=== PATIENT | male | born 1965 | race Caucasian/White ===

== ENCOUNTER 2017-03-31 10:54 | Emergency (ER) | payer OTHER ==
[~2017-03-31] VITALS: Ht 167.6 cm; Wt 77.1 kg
[~2017-03-31 10:54] MED LIST: ECOTRIN325 MG PO; TOPROL XL25 MG PO
[2017-03-31] MEDS ORDERED: ONDANSETRON HCL INJ 2 MG/ML VIAL IV STA (11:07)
[2017-03-31] MEDS ORDERED: SODIUM CHLORIDE 0.9% 1000ML 1,000 ML IV SCH (11:15)
[2017-03-31] MEDS: SODIUM CHLORIDE FLUSH 10 ML SYR INJ PRN ×2 (12:44→13:35)
[2017-03-31] MEDS ORDERED: MORPHINE SULFATE 2 MG/ML SYR IV STA (12:47)
[2017-03-31 13:00] LABS: BASOPHILS % 0.6 % (0.0-1.0); EOSINOPHILS # (AUTO) 0.1 (0.0-0.4); EOSINOPHILS % 1.7 % (0.0-6.0); HEMATOCRIT 46.5 % (38.2-49.6); HEMOGLOBIN 16.3 g/dL (14.0-18.0); LYMPHOCYTES # (AUTO) 2.2 (1.0-3.2); LYMPHOCYTES % 40.9 % (18.0-39.1); MEAN CORPUSCULAR HEMOGLOBIN 30.2 pg (28-32); MEAN CORPUSCULAR HGB CONC 35.1 g/dL (31-35); MEAN CORPUSCULAR VOLUME 86.1 fL (81-99); MONOCYTES # (AUTO) 0.4 (0.2-0.8); NEUTROPHILS # (AUTO) 2.6 (2.1-6.9); NEUTROPHILS % 48.4 % (38.7-80.0); PLATELET COUNT 236 x10e3/uL (140-360); RED CELL DISTRIBUTION WIDTH 11.9 % (11.7-14.4)
[2017-03-31 13:15] LABS: ALANINE AMINOTRANSFERASE 26 IU/L (0-55); ALBUMIN 4.6 g/dL (3.5-5.0); ALBUMIN/GLOBULIN RATIO 1.4 (0.8-2.0); ALKALINE PHOSPHATASE 53 IU/L (40-150); ANION GAP 10.8 mmol/L (8-16); BLOOD UREA NITROGEN 11 mg/dL (7-26); BUN/CREATININE RATIO 12 (6-25); CALCIUM 9.1 mg/dL (8.4-10.2); CARBON DIOXIDE 25 mmol/L (22-29); CHLORIDE 104 mmol/L (98-107); CREATININE, SERUM 0.93 mg/dL (0.72-1.25); EST GLOMERULAR FILTRATION RATE > 60 ML/MIN (60-); GLUCOSE 85 mg/dL (74-118); POTASSIUM 3.8 mmol/L (3.5-5.1); SODIUM 136 mmol/L (136-145)
[2017-03-31] MEDS ORDERED: ONDANSETRON HCL INJ 2 MG/ML VIAL IV ONE (13:30)
[2017-03-31 14:04] LABS: BILIRUBIN,URINE NEGATIVE (NEGATIVE); CLARITY,URINE CLEAR (CLEAR); COLOR,URINE YELLOW (YELLOW); KETONES,URINE NEGATIVE (NEGATIVE); LEUKOCYTE ESTERASE ,URINE NEGATIVE (NEGATIVE); NITRITE,URINE NEGATIVE (NEGATIVE); PROTEIN,URINE DIPSTICK NEGATIVE (NEGATIVE); URINE UROBILINOGEN 0.2 mg/dL (0.2 - 1)
[2017-03-31 14:18] LABS: WBC,URINE (MAN) 0-5 /HPF (0-5)
--- NOTE | 2017-03-31 14:51 | Diagnostic Imaging Report ---
Examination: Single AP view of the chest. COMPARISON: None. INDICATION: Right-sided abdominal pain, dyspnea DISCUSSION: Lines/tubes: None. Lungs: The lungs are well inflated and clear. No pneumonia or pulmonary edema. Pleura: There is no pleural effusion or pneumothorax. Heart and mediastinum: The heart and the mediastinum are unremarkable. Bones and soft tissues: No acute bony abnormalities. IMPRESSION: 1. No acute cardiopulmonary abnormalities. Signed by: Dr. Fito Bates M.D. on 03/31/2017 2:48 PM
[2017-03-31] MEDS ORDERED: SODIUM CHLORIDE 0.9% 50ML 50 ML ONE (14:56)
[2017-03-31] MEDS ORDERED: IOPAMIDOL 370 MG/ML 200 ML INFUS..BTL INJ ONE (14:56)
--- NOTE | 2017-03-31 15:03 | Diagnostic Imaging Report ---
EXAMINATION: CT of the abdomen and pelvis with contrast. TECHNIQUE: Helical CT images of the abdomen and pelvis were performed from the lung bases to the lesser trochanters after the intravenous administration of 100 cc of Isovue 300 and the oral administration of none. Coronal and sagittal reformatted images were obtained. COMPARISON: None. CLINICAL HISTORY:Right-sided abdominal pain DISCUSSION: ABDOMEN/PELVIS: LOWER THORAX:Unremarkable. HEPATOBILIARY: No focal hepatic lesions. No intra-or extrahepatic biliary ductal dilation. Cholecystectomy clips. SPLEEN: No splenomegaly. PANCREAS: No focal masses or ductal dilatation. ADRENALS: No adrenal nodules. KIDNEYS/URETERS: No hydronephrosis, stones, or solid mass lesions. PELVIC ORGANS/BLADDER: The bladder is normal. PERITONEUM/RETROPERITONEUM: No free air or fluid. LYMPH NODES: No intra-abdominal, retroperitoneal, pelvic or inguinal lymphadenopathy. VESSELS: The celiac trunk,superior and inferior mesenteric and bilateral renal arteries are patent The portal, superior mesenteric and splenic veins are patent. GI TRACT: No distention or wall thickening. Appendix not visualized. BONES AND SOFT TISSUE: No bony destructive lesions. IMPRESSION: No acute CT finding. Signed by: Dr. Fito Bates M.D. on 03/31/2017 2:59 PM
[2017-03-31] MEDS ORDERED: HYDROMORPHONE 2MG/ML INJ IV ONE (16:00)
== END 2017-03-31 17:08 | disposition home or self-care (01) ==
LOC: ER 10:54
DX: R10.31 Right lower quadrant pain (principal); R11.0 Nausea
CPT/HCPCS: 36415; 71010; 74177; 80053; 81001; 85025; 87040; 87086; 99284; J2270; J2405; J7030; Q9967

== ENCOUNTER 2019-02-14 15:03 | Inpatient (IN) | payer OTHER ==
[~2019-02-14] VITALS: Ht 170.2 cm; Wt 79.5 kg
[2019-02-14] MEDS ORDERED: IBUPROFEN 600 MG TAB PO NR (16:30)
[2019-02-14 17:06] LABS: BASOPHILS % 0.4 % (0.0-1.0); EOSINOPHILS # (AUTO) 0.2 (0.0-0.4); EOSINOPHILS % 2.1 % (0.0-6.0); HEMOGLOBIN 14.4 g/dL (14.0-18.0); LYMPHOCYTES # (AUTO) 2.2 (1.0-3.2); LYMPHOCYTES % 31.7 % (18.0-39.1); MEAN CORPUSCULAR HEMOGLOBIN 29.8 pg (28-32); MEAN CORPUSCULAR HGB CONC 34.3 g/dL (31-35); MEAN CORPUSCULAR VOLUME 86.8 fL (81-99); MONOCYTES # (AUTO) 0.6 (0.2-0.8); MONOCYTES % 8.9 % (4.4-11.3); NEUTROPHILS % 56.6 % (38.7-80.0); PLATELET COUNT 232 x10e3/uL (140-360); RED BLOOD COUNT 4.84 x10e6/uL (4.3-5.7); RED CELL DISTRIBUTION WIDTH 12.5 % (11.7-14.4)
[2019-02-14 17:49] LABS: ALANINE AMINOTRANSFERASE 50 IU/L (0-55); ALBUMIN 3.9 g/dL (3.5-5.0); ALBUMIN/GLOBULIN RATIO 1.3 (0.8-2.0); ALKALINE PHOSPHATASE 45 IU/L (40-150); ANION GAP 14.6 mmol/L (8-16); BLOOD UREA NITROGEN 11 mg/dL (7-26); BUN/CREATININE RATIO 12 (6-25); CALCIUM 8.8 mg/dL (8.4-10.2); CARBON DIOXIDE 23 mmol/L (22-29); CHLORIDE 104 mmol/L (98-107); CREATINE KINASE 2652 IU/L (30-200); CREATININE, SERUM 0.95 mg/dL (0.72-1.25); EST GLOMERULAR FILTRATION RATE > 60 ML/MIN (60-); GLUCOSE 93 mg/dL (74-118); POTASSIUM 3.6 mmol/L (3.5-5.1); SODIUM 138 mmol/L (136-145)
[2019-02-14] MEDS ORDERED: SODIUM CHLORIDE 0.9% 1000ML 1,000 ML IV STA (18:04)
[2019-02-14] MEDS: SODIUM CHLORIDE 0.9% 1000ML 1,000 ML IV SCH (21:28)
[2019-02-15] VITALS (8 sets, daily range): BP systolic 129–140; BP diastolic 78–93
[2019-02-15] MEDS: SODIUM CHLORIDE 0.9% 1000ML 1,000 ML IV SCH ×4 (02:11→20:58)
[2019-02-15 03:29] LABS: CREATINE KINASE MB 59.3 ng/mL (0-5.0)
[2019-02-15] MEDS: ACETAMINOPHEN 325 MG TAB PO PRN (06:32)
--- NOTE | 2019-02-15 07:04 | NUR ---
Received patient semi fowlers position, side rails upx2, call light within reach. Resting with eyes closed. Arousable to verbal stimuli. Respirations even and unlabored. Side rails upx2, call light within reach.
[2019-02-15] MEDS ORDERED: ASPIRIN 325 MG TAB EC PO SCH (09:00)
[2019-02-15 11:58] LABS: CREATINE KINASE MB 63.2 ng/mL (0-5.0)
[2019-02-15] MEDS: HYDROCODONE/APAP 5MG-325MG TAB PO PRN (18:28)
[2019-02-15 19:11] LABS: CREATINE KINASE MB 78.4 ng/mL (0-5.0)
--- NOTE | 2019-02-15 19:13 | NUR ---
Report given to oncoming nurse of patient's status.No s/s of acute distress noted. Side rails upx2, call light within reach, at bedside.
--- NOTE | 2019-02-15 19:45 | NUR ---
Called MD Dr Macias to report elevated CK 3465 from 270. Patient on NS 125. Monitor urine output, if urine remains clear, continue NS and consult madeline Hagan to see in am.
--- NOTE | 2019-02-15 19:54 | NUR ---
New consult called Issac Hagan. Spoke with Answering service.
--- NOTE | 2019-02-15 20:15 | NUR ---
Instructed patient to void per urinal to observe urine color and output. Patient verbalized understanding.
--- NOTE | 2019-02-15 21:00 | NUR ---
Empty 200ml of clear yellow urine, Will continue to monitor.
--- NOTE | 2019-02-15 23:00 | NUR ---
Emptied 400 ml of clear yellow urine, will continue to monitor.
[2019-02-16] VITALS (7 sets, daily range): BP systolic 121–158; BP diastolic 77–98
[2019-02-16] MEDS: SODIUM CHLORIDE 0.9% 1000ML 1,000 ML IV SCH ×3 (02:44→18:11)
[2019-02-16 05:43] LABS: ANION GAP 11.6 mmol/L (8-16); BLOOD UREA NITROGEN 8 mg/dL (7-26); BUN/CREATININE RATIO 10 (6-25); CARBON DIOXIDE 24 mmol/L (22-29); CHLORIDE 107 mmol/L (98-107); CREATININE, SERUM 0.83 mg/dL (0.72-1.25); EST GLOMERULAR FILTRATION RATE > 60 ML/MIN (60-); GLUCOSE 86 mg/dL (74-118); POTASSIUM 3.6 mmol/L (3.5-5.1); SODIUM 139 mmol/L (136-145)
[2019-02-16] MEDS: ASPIRIN 81 MG ENTERIC COATED PO SCH (09:05)
[2019-02-16 11:25] LABS: MAGNESIUM 1.8 MG/DL (1.3-2.1); PHOSPHORUS 2.9 MG/DL (2.3-4.7)
[2019-02-16 13:20] LABS: AMPHETAMINES SCREEN,URINE NEGATIVE (NEGATIVE); BENZODIAZEPINES SCREEN,URINE NEGATIVE (NEGATIVE); PHENCYCLIDINE SCREEN,URINE NEGATIVE (NEGATIVE)
[2019-02-16 13:21] LABS: BILIRUBIN,URINE NEGATIVE (NEGATIVE); CLARITY,URINE CLEAR (CLEAR); COLOR,URINE COLORLESS (YELLOW); KETONES,URINE NEGATIVE (NEGATIVE); LEUKOCYTE ESTERASE ,URINE NEGATIVE (NEGATIVE); NITRITE,URINE NEGATIVE (NEGATIVE); PROTEIN,URINE DIPSTICK NEGATIVE (NEGATIVE); URINE UROBILINOGEN 0.2 mg/dL (0.2 - 1)
[2019-02-16] MEDS: SODIUM BICARBONATE 8.4% 150 ML in DEXTROSE 5% 1,000 ML IV SCH ×2 (13:33→20:30)
--- NOTE | 2019-02-16 17:36 | Consultation ---
DATE OF CONSULTATION: 02/16/2019 HISTORY OF PRESENT ILLNESS: A 53-year-old gentleman, prior history of Graves disease, was treated in 1998 with radioactive iodine. Had a couple of followups with Endocrinology and then stopped going. Has a history of osteoarthritis, C-spine as well as migraine, takes about 4 tablets of Tylenol on the average week, also takes Excedrin. There is a discrepancy between what the is saying and what the patient is saying, but this is what the patient states. He developed soreness in his calves bilateral this Saturday. He works at a desk. He does not recall doing any strenuous exercise or drink alcohol on the day off or prior to that. On the weekend before this episode occurred, he had gone to [facility] to skin some deer meat and brought some deer meat back that required standing and cutting meat, etc. Except for soreness in his calves, he is asymptomatic at this point in time. He states he is passing urine. ALLERGIES: HE DENIES ANY DRUG ALLERGIES. MEDICATIONS: Currently on normal saline, aspirin 81 mg daily, Tylenol p.r.n., and received one-time dose of ibuprofen. SOCIAL HISTORY: The patient drinks occasionally, not on a regular basis. Last beer he had was Saturday when he went to [facility]. Does not smoke. Denies any substance abuse. Denies taking any [employer] products. PHYSICAL EXAMINATION: VITAL SIGNS: Has a blood pressure of 135/92, pulse rate 59, afebrile. HEAD AND NECK: Cornea clear. Oral mucosa moist. NECK: Neck veins flat. LUNGS: Relatively clear. HEART: S1, S2 audible. ABDOMEN: Otherwise, soft, nontender. No visceromegaly. LOWER EXTREMITIES: Calves are not swollen and they are not particularly tender, but the patient feels soreness in his calves. LABORATORY DATA: His CPK is 3465. His creatinine is 0.8, sodium 139, potassium 3.6, chloride 107, bicarbonate 24. TSH 0.977. Free T3 pending. No urinalysis done. Hematology shows white count 7.0, hemoglobin 14.4. IMPRESSION AND PLAN: Rhabdomyolysis, etiology still not clear. Plan on sending urinalysis. We will obtain a urine drug screen. Obtain phosphorus and magnesium levels. Change IV fluid to IV bicarbonate drip at 150 mL an hour. Monitor the patient's CK, electrolytes, kidney function with you. MD NASREEN Monte/MODL /[id number]
--- NOTE | 2019-02-16 23:00 | NUR ---
221 Called to patient room by patient. Reporting feeling SOB and pain in chest 11/11. Noted patient shaking and reports feeling dizzy. V/S 176/109, 71, 02 sat 97 on room air. 222 Patient placed on 02. Patient remains in pain and dizzy. 222 Rapid response called. Labs ordered: Cardiac enzymes, DDimer, BNP, EKG and CXR. 222 BP 171/100, 72, 18, 98% on 2L, awaiting lab and cxr results then to notify Dr Macias. 2238 Manual BP 152/98, 70. Awaiting results to call MD. Patient stating pain in chest is soreness and painful with deep breath. Will continue to monitor.
[2019-02-16 23:15] LABS: CREATINE KINASE MB 202.4 ng/mL (0-5.0)
--- NOTE | 2019-02-16 23:27 | Diagnostic Imaging Report ---
EXAMINATION: CHEST SINGLE (PORTABLE) INDICATION: ^chest pain COMPARISON: None FINDINGS: AP view TUBES and LINES: None. LUNGS: Limited by body habitus and low lung volumes. There is no evidence of pneumonia or pulmonary edema. PLEURA: No pneumothorax. Small left pleural effusion cannot be excluded. HEART AND MEDIASTINUM: The cardiac silhouette is prominent on this AP view. BONES AND SOFT TISSUES: No acute osseous lesion. Soft tissues are unremarkable. UPPER ABDOMEN: No free air under the diaphragm. IMPRESSION: Limited as above. Small left pleural effusion cannot be excluded. Otherwise, unremarkable. Signed by: Dr. Edmond Putnam MD on 02/16/2019 11:23 PM
[2019-02-17] VITALS (26 sets, daily range): BP systolic 111–158; BP diastolic 80–104
[2019-02-17] MEDS ORDERED: MORPHINE SULFATE 2 MG/ML SYR 1ML IV STA (00:33)
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
--- NOTE | 2019-02-17 01:40 | NUR ---
Received to 195 from MS 2. Placed on EKG, pulse ox & NBP for monitoring. IV D5W with 3 amps NaHCO3 infusing @ 150ml/hr.
--- NOTE | 2019-02-17 02:00 | NUR ---
Pt spoke with on the phone. He let her know that he was in ICU.
[2019-02-17] MEDS: SODIUM CHLORIDE 0.9% 1000ML 1,000 ML IV SCH (02:11)
--- NOTE | 2019-02-17 02:25 | NUR ---
Call to Dr. Rodriguez (oc for Dr. Manjarrez). Advised of consult. No new orders.
--- NOTE | 2019-02-17 02:56 | Diagnostic Imaging Report ---
EXAM: CT Chest WITHOUT contrast INDICATION: ^elevated d dimer ^[id number] ^0100 COMPARISON: Chest x-ray of 02/16/2019 TECHNIQUE: Chest was scanned utilizing a multidetector helical scanner from the lung apex through the level of the adrenal glands without administration of IV contrast. Absence of intravenous contrast decreases sensitivity for detection of lymphadenopathy and vascular pathology. Coronal and sagittal reformations were obtained. Routine protocol was performed. IV CONTRAST: None COMPLICATIONS: None RADIATION DOSE: Total DLP: 467.76 mGy*cm Estimated effective dose: (DLP x 0.014 x size factor) mSv CTDIvol has been reviewed. It is below the limits set by the Radiation Protocol Committee (RPC). FINDINGS: LINES/ TUBES: None. LUNGS , PLEURA, AND AIRWAYS: Anterior right upper lobe calcified granuloma. Airways are normal. No pneumothorax. Trace left and small right pleural effusions with adjacent mild compressive atelectasis. HEART AND MEDIASTINUM: The thyroid gland is normal. No mediastinal, hilar or axillary lymphadenopathy. The heart is borderline in size. There is no pericardial effusion. UPPER ABDOMEN: Cholecystectomy. BONES: The visualized bony thorax is within normal limits. SOFT TISSUES: Unremarkable. IMPRESSION: Trace left and small right pleural effusions with adjacent mild compressive atelectasis. Signed by: Dr. Edmond Putnam MD on 02/17/2019 2:53 AM
[2019-02-17 05:36] LABS: ALANINE AMINOTRANSFERASE 100 IU/L (0-55); ALBUMIN 3.3 g/dL (3.5-5.0); ALBUMIN/GLOBULIN RATIO 1.4 (0.8-2.0); ALKALINE PHOSPHATASE 43 IU/L (40-150); ANION GAP 12.6 mmol/L (8-16); BLOOD UREA NITROGEN 8 mg/dL (7-26); BUN/CREATININE RATIO 10 (6-25); CALCIUM 8.2 mg/dL (8.4-10.2); CARBON DIOXIDE 28 mmol/L (22-29); CHLORIDE 103 mmol/L (98-107); CREATININE, SERUM 0.79 mg/dL (0.72-1.25); EST GLOMERULAR FILTRATION RATE > 60 ML/MIN (60-); GLUCOSE 105 mg/dL (74-118); POTASSIUM 3.6 mmol/L (3.5-5.1); SODIUM 140 mmol/L (136-145)
[2019-02-17 05:49] LABS: CREATINE KINASE 8156 IU/L (30-200)
[2019-02-17] MEDS: SODIUM BICARBONATE 8.4% 150 ML in DEXTROSE 5% 1,000 ML IV SCH ×3 (06:43→15:58)
[2019-02-17] MEDS: ASPIRIN 81 MG ENTERIC COATED PO SCH (08:38)
--- NOTE | 2019-02-17 16:25 | Diagnostic Imaging Report ---
EXAM: US ABDOMEN COMPLETE DATE: 02/17/2019 12:00 AM INDICATION: Noted osseous COMPARISON: CT abdomen/pelvis from 03/31/2017 FINDINGS: The pancreas is not well-visualized secondary to prominent midline bowel gas. The liver is normal in size measuring 13.4 cm in length. The hepatic parenchyma is mildly increased in echogenicity. No focal hepatic abnormality is identified. The main portal vein is patent with antegrade flow and diameter of 0.9 cm, within normal limits. The gallbladder is surgically absent. There is no intra or extrahepatic biliary ductal dilatation. The common bile duct measures 2 mm. The spleen is normal in size measuring 12.9 cm in length and demonstrates an unremarkable sonographic appearance. The kidneys are normal in size measuring 10.3 centers in length on the right and 10.3 cm in length on the left with normal cortical thickness and echogenicity. There is no evidence for solid renal mass, hydronephrosis, or shadowing calculi. The aorta and IVC are not well-visualized secondary to prominent overlying bowel gas. There is no ascites visualized. IMPRESSION: Mildly increased hepatic echogenicity which can be seen in setting of mild steatosis. Status post cholecystectomy. Otherwise, unremarkable abdominal ultrasound examination. Signed by: Dr. Alex Lopez MD on 02/17/2019 4:21 PM
--- NOTE | 2019-02-17 19:16 | NUR ---
Report received. Assume care. Assessment done. See interventions. IV: D5W with 3 amps NaHCO3 @ 120ml/hr.
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
--- NOTE | 2019-02-17 22:38 | NUR ---
CK [address] Peterson. No new orders.
[2019-02-17 22:49] LABS: HIV 1&2 AB SCREEN NON-REACTIVE (NONREACTIVE)
[2019-02-18] VITALS (24 sets, daily range): BP systolic 115–159; BP diastolic 76–108
[2019-02-18] MEDS: SODIUM BICARBONATE 8.4% 150 ML in DEXTROSE 5% 1,000 ML IV SCH (01:30)
[2019-02-18 06:08] LABS: ALANINE AMINOTRANSFERASE 140 IU/L (0-55); ALBUMIN 3.4 g/dL (3.5-5.0); ALBUMIN/GLOBULIN RATIO 1.3 (0.8-2.0); ALKALINE PHOSPHATASE 45 IU/L (40-150); ANION GAP 12.3 mmol/L (8-16); BLOOD UREA NITROGEN 8 mg/dL (7-26); BUN/CREATININE RATIO 10 (6-25); CALCIUM 8.6 mg/dL (8.4-10.2); CARBON DIOXIDE 29 mmol/L (22-29); CHLORIDE 97 mmol/L (98-107); CREATININE, SERUM 0.82 mg/dL (0.72-1.25); EST GLOMERULAR FILTRATION RATE > 60 ML/MIN (60-); GLUCOSE 107 mg/dL (74-118); POTASSIUM 3.3 mmol/L (3.5-5.1); SODIUM 135 mmol/L (136-145)
[2019-02-18] MEDS: ACETAMINOPHEN 325 MG TAB PO PRN ×3 (06:17→20:26)
--- NOTE | 2019-02-18 06:17 | NUR ---
Medicated for c/o headache 06/11.
[2019-02-18] MEDS: ASPIRIN 81 MG ENTERIC COATED PO SCH (08:47)
[2019-02-18] MEDS ORDERED: POTASSIUM CHLORIDE 20 MEQ TAB CR PO ONE (10:15)
[2019-02-18] MEDS: HYDROCODONE/APAP 5MG-325MG TAB PO PRN ×2 (13:43→21:42)
--- NOTE | 2019-02-18 15:58 | Progress Note ---
DATE: 02.18.19 SUBJECTIVE: Feeling better. Muscle aches have resolved. Remains on sodium bicarbonate drip. OBJECTIVE: VITAL SIGNS: Temperature 98.8, blood pressure 123/96. CHEST: Clear. EXTREMITIES: No edema. LABORATORY DATA: Labs show normal CPK of 9100. K of 3.3, creatinine 0.8, serum CO2 of 29. ASSESSMENT: 1. Rhabdomyolysis. 2. Satisfactory GFR. 3. Concern for fluid overload. PLAN: Cut down the IV fluids given that his renal function is normal. I suspect he may diurese any extra fluid on his own. Serial chemistries, as long as the CPK continues to come down here and has no issues with dyspnea, he may be able to go home safely. MD BRIAN Pfeiffer/YONI /[id number]
--- NOTE | 2019-02-18 19:24 | Progress Note ---
DATE: SUBJECTIVE: Mr. Sanchez is doing much better today. REVIEW OF SYSTEMS: HEENT: Negative. PULMONARY: Negative. CARDIAC: Negative. : Negative. All other within normal limit. Review of systems otherwise unremarkable. LABORATORY DATA: White count 7.07. His sodium 135, potassium 3.3, and creatinine 0.82. PHYSICAL EXAMINATION: GENERAL: He is currently alert and oriented. Does not seem to be in acute distress. VITAL SIGNS: Stable, afebrile. HEENT: He is not icteric. NECK: Supple. CHEST: Clear. HEART: S1 and S2. No S3, S4, or murmurs. ABDOMEN: Soft. Bowel sounds present. No tenderness. EXTREMITIES: No edema. SKIN: No rash. IMPRESSION: Rhabdomyolysis secondary to cold exposure. Discussed with the patient apparently when he was carry them back. So there is a lot of muscular effort in addition to cold exposure and that would explain his condition. MD ALKA Doherty/MODL /[id number]
[2019-02-19] VITALS (7 sets, daily range): BP systolic 139–157; BP diastolic 94–115
[2019-02-19] MEDS: SODIUM BICARBONATE 8.4% 150 ML in DEXTROSE 5% 1,000 ML IV SCH ×3 (00:17→23:17)
[2019-02-19 05:46] LABS: ANION GAP 11.8 mmol/L (8-16); BLOOD UREA NITROGEN 8 mg/dL (7-26); BUN/CREATININE RATIO 10 (6-25); CALCIUM 9.5 mg/dL (8.4-10.2); CARBON DIOXIDE 29 mmol/L (22-29); CHLORIDE 98 mmol/L (98-107); CREATININE, SERUM 0.81 mg/dL (0.72-1.25); EST GLOMERULAR FILTRATION RATE > 60 ML/MIN (60-); GLUCOSE 96 mg/dL (74-118); POTASSIUM 3.8 mmol/L (3.5-5.1); SODIUM 135 mmol/L (136-145)
[2019-02-19 07:00] LABS: CREATINE KINASE 12478 IU/L (30-200)
[2019-02-19] MEDS: ASPIRIN 81 MG ENTERIC COATED PO SCH (08:57)
--- NOTE | 2019-02-19 10:04 | Progress Note ---
DATE: 02/19/2019 SUBJECTIVE: Still having some muscle aches, particularly in the upper back. The urine as of three days ago did not show any positive blood on the dipstick or RBCs. RICHARD is negative. Rheumatoid factor is negative. HIV serologies were negative. Drug screen was negative. PHYSICAL EXAMINATION: GENERAL: Sitting up, no distress as such but appears somewhat frustrated. VITAL SIGNS: Temperature 97.6, pulse 81, blood pressure 139/105. HEENT: Atraumatic. MUSCULOSKELETAL: No definite muscle tenderness. EXTREMITIES: No edema. LUNGS: Clear. LABORATORY DATA: Creatinine is 0.8. Sodium 135, serum CO2 29. White count is not elevated. Hemoglobin 14, platelets of 232. ASSESSMENT: 1. Rhabdomyolysis. Current thinking is that it maybe exacerbated from the cold combined with increased activity at the time. 2. Satisfactory GFR. 3. Alkalosis from the IV bicarbonate. PLAN: Leave on IV bicarbonate. Monitor I's and O's. Serial chemistries. We will follow along. MD BRIAN Pfeiffer/HONGL /[id number]
[2019-02-19 12:16] LABS: BACTERIA,URINE MODERATE /HPF; BILIRUBIN,URINE NEGATIVE (NEGATIVE); CLARITY,URINE CLEAR (CLEAR); COLOR,URINE YELLOW (YELLOW); EPITHELIAL CELLS,URINE FEW /LPF; KETONES,URINE NEGATIVE (NEGATIVE); LEUKOCYTE ESTERASE ,URINE NEGATIVE (NEGATIVE); NITRITE,URINE NEGATIVE (NEGATIVE); PROTEIN,URINE DIPSTICK NEGATIVE (NEGATIVE); RBC,URINE 0-5 /HPF (0-5); URINE UROBILINOGEN 0.2 mg/dL (0.2 - 1); WBC,URINE (MAN) 0-5 /HPF (0-5)
[2019-02-19] MEDS: HYDROCODONE/APAP 5MG-325MG TAB PO PRN (17:01)
--- NOTE | 2019-02-19 17:55 | NUR ---
INFORMED DR MARTINEZ PATIENT C/O PAIN 12/11 TO RIGHT SHOULDER UNRELIEVED BY CURRENT MEDICATION AND ELEVATED BP, ORDERS RECEIVED AND ENTERED
[2019-02-19] MEDS ORDERED: MORPHINE SULFATE 2 MG/ML SYR 1ML IV ONE (18:15)
[2019-02-19] MEDS ORDERED: CLONIDINE HCL 0.1 MG TAB PO ONE (20:00)
[2019-02-20] MEDS ORDERED: CLONIDINE HCL 0.1 MG TAB PO ONE (00:30)
--- NOTE | 2019-02-20 00:32 | NUR ---
BP 161/113. Medicated with clonidine per eMAR.
[2019-02-20 00:33] VITALS: BP 161/113
[2019-02-20 04:00] VITALS: BP 137/85
[2019-02-20] MEDS: ASPIRIN 81 MG ENTERIC COATED PO SCH (05:45)
[2019-02-20 06:06] LABS: ANION GAP 14.5 mmol/L (8-16); BLOOD UREA NITROGEN 7 mg/dL (7-26); BUN/CREATININE RATIO 8 (6-25); CALCIUM 9.1 mg/dL (8.4-10.2); CARBON DIOXIDE 29 mmol/L (22-29); CHLORIDE 97 mmol/L (98-107); EST GLOMERULAR FILTRATION RATE > 60 ML/MIN (60-); GLUCOSE 97 mg/dL (74-118); POTASSIUM 3.5 mmol/L (3.5-5.1); SODIUM 137 mmol/L (136-145)
--- NOTE | 2019-02-20 07:00 | NUR ---
bedside rounds complete no distress noted, updated on poc voiced understanding, denies pain at this time, ivf infusing to r ac 20g no ss of infiltration noted, no other co voiced call light in reach will continue to monito
[2019-02-20 08:22] VITALS: BP_SYST 140; BP_DIAS 101; BP_DIAS 102
[2019-02-20] MEDS: SODIUM BICARBONATE 8.4% 150 ML in DEXTROSE 5% 1,000 ML IV SCH (08:22)
[2019-02-20] MEDS: AMLODIPINE BESYLATE 5 MG TAB PO SCH ×2 (09:42→17:32)
--- NOTE | 2019-02-20 10:21 | Progress Note ---
DATE: SUBJECTIVE: Feels better. Muscle aches, mostly resolved. CPK is coming down. OBJECTIVE: VITAL SIGNS: Temperature 98.6, blood pressure 137/85, and pulse 84. CHEST: Clear. EXTREMITIES: No edema. ASSESSMENT: 1. Rhabdomyolysis, improving. 2. Satisfactory renal function. 3. Avoid combination of dehydration/exercise and alcohol. We will follow along. MD BRIAN Pfeiffer/YONI /[id number]
[2019-02-20] MEDS: ACETAMINOPHEN 325 MG TAB PO PRN (11:45)
[2019-02-20 11:48] VITALS: BP 128/71
--- OUTSIDE RECORDS SUMMARY | 2019-02-20 12:08 | XMS REPORT ---
Author Author [facility] Address Unknown Phone Unavailable Care Team Providers Care Help Desk Agent Name Role Phone TRAVIS MARTINEZ Unavailable Unavailable Cheyanne VALDEZ Unavailable Unavailable Problems This patient has no known problems. Allergies, Adverse Reactions, Alerts This patient has no known allergies or adverse reactions. Medications This patient has no known medications. Results Test Description Test Time Test Comments Text Results Atomic Results Result Comments US ABDOMEN COMPLETE 2019-02-17 16:18:00 [facility] [address] [address] Patient Name: ERIC NAVARRO MR #: [id number] : 1965 Age/Sex: 53/M Req #: [id number] Adm Physician: TRAVIS MARTINEZ MD Ordered by: CHARLES MCDONALD, GREGORY MCDONALD Report #: [id number] Location: ICU Room/Bed: ICU [facility] Procedure: [id number] US/US ABDOMEN COMPLETE Exam Date: Exam Time: REPORT STATUS: Signed EXAM: US ABDOMEN COMPLETE DATE: 02/17/2019 12:00 AM INDIC ATION: Noted osseous COMPARISON: CT abdomen/pelvis from 03/31/2017 FINDINGS: The pancreas is not well-visualized secondary to prominent midline bowel gas. The liver is normal in size measuring 13.4 cm in length. The hepatic parenchyma is mildly increased in echogenicity. No focal hepatic abnormality is identified. The main portal vein is patent with antegrade flow and diameter of 0.9 cm, within normal limits. The gallbladder is surgically absent. There is no intra or extrahepatic biliary ductal dilatation. The common bile duct measures 2 mm. The spleen is normal in size measuring 12.9 cm in length and demonstrates an unremarkable sonographic appearance. The kidneys are normal in size measuring 10.3 centers in length on the right and 10.3 cm in length on the left with normal cortical thickness and echogenicity. There is no evidence for solid renal mass, hydronephrosis, or shadowing calculi. The aorta and IVC are not well-visualized secondary to prominent overlying bowel gas. There is no ascites visualized. IMPRESSION: Mildly increased hepatic echogenicity which can be seen in setting of mild steatosis. Status post cholecystectomy. Otherwise, unremarkable abdominal ultrasound examination. Signed by: Dr. Alex Lopez MD on 02/17/2019 4:21 PM Dictated By: ALEX LOPEZ MD 20 Transcribed By: KELLEN on 02/17/19 162 COPY TO: GREGORY SOTO CT CHEST WO 2019-02-17 01:47:00 [address] [address] Patient Name: ERIC NAVARRO MR #: [id number] : 1965 Age/Sex: 53/M Req #: [id number] Adm Physician: TRAVIS MARTINEZ MD Ordered by: TRAVIS MARTINEZ MD Report #: [id number] Location: ICU Room/Bed: ICU [facility] Procedure: [id number] CT/CT CHEST WO Exam Date: 02/17/19 Exam Time: 0100 REPORT STATUS: Signed EXAM: CT Chest WITHOUT contrast INDICATION: elevated d dimer [id number] COMPARISON: Chest x-ray of 02/16/2019 TECHNIQUE: Chest was scanned utilizing a multidetector helical scanner from the lung apex through the level of the adrenal glands without administration of IV contrast. Absence of intravenous contrast decreases sensitivity for detection of lymphadenopathy and vascular pathology. Coronal and sagittal reformations were obtained. Routine protocol was performed. IV CONTRAST: None COMPLICATIONS: None RADIATION DOSE: Total DLP: 467.76 mGy*cm Estimated effective dose: (DLP x 0.014 x size factor) mSv CTDIvol has been reviewed. It is below the limits set by the Radiation Protocol Committee (RPC). FINDINGS: LINES/ TUBES: None. LUNGS , PLEURA, AND AIRWAYS: Anterior right upper lobe calcified granuloma. Airways are normal. No pneumothorax. Trace left and small right pleural effusions with adjacent mild compressive atelectasis. HEART AND MEDIASTINUM: The thyroid gland is normal. No mediastinal, hilar or axillary lymphadenopathy. The heart is borderline in size. There is no pericardial effusion. UPPER ABDOMEN: Cholecystectomy. BONES: The visualized bony thorax is within normal limits. SOFT TISSUES: Unremarkable. IMPRESSION: Trace left and small right pleural effusions with adjacent mild compressive atelectasis. Signed by: Dr. Edmond Wadsworth MD on 02/17/2019 2:53 AM Dictated By: EDMOND WADSWORTH MD 2 Transcribed By: KELLEN on 02/17/19252 COPY TO: TRAVIS MARTINEZ MD CHEST SINGLE (PORTABLE) 2019-02-16 23:22:00 [address] [address] Patient Name: ERIC NAVARRO MR #: [id number] : 1965 Age/Sex: 53/M Req #: [id number] Adm Physician: TRAVIS MARTINEZ MD Ordered by: ROLANDO REYNOLDS MD Report #: [id number] Location: MED/SURG2 Room/Bed: [facility] Procedure: [id number] DX/CHEST SINGLE (PORTABLE) Exam Date: Exam Time: REPORT STATUS: Signed EXAMINATION: CHEST SINGLE (PORTABLE) INDICATION: chest pain COMPARISON: None FINDINGS: AP view TUBES and LINES: None. LUNGS: Limited by body habitus and low lung volumes. There is no evidence of pneumonia or pulmonary edema. PLEURA: No pneumothorax. Small left pleural effusion cannot be excluded. HEART AND MEDIASTINUM: The cardiac silhouette is prominent on this AP view. BONES AND SOFT TISSUES: No acute osseous lesion. Soft tissues are unremarkable. UPPER ABDOMEN: No free air under the diaphragm. IMPRESSION: Limited as above. Small left pleural effusion cannot be excluded. Otherwise, unremarkable. Signed by: Dr. Edmond Wadsworth MD on 02/16/2019 11:23 PM Dictated By: EDMOND WADSWORTH MD 22 Transcribed By: KELLEN on 02/16/192322 COPY TO: ROLANDO REYNOLDS MD CHEST SINGLE (PORTABLE) [address] [place] [address] Patient Name: ERIC NAVARRO MR #: [id number] : 1965 Age/Sex: 51/M Req #: [id number] Adm Physician: Ordered by: LULU GALEANA Report #: [id number] Location: ER Room/Bed: Procedure: [id number] DX/CHEST SINGLE (PORTABLE) Exam Date: 03/31/17 Exam Time: 1430 REPORT STATUS: Signed Examination: Single AP view of the chest. COMPARISON: None. INDICATION: Right-sided abdominal pain, dyspnea DISCUSSION: Lines/tubes: None. Lungs: The lungs are well inflated and clear. No pneumonia or pulmonary edema. Pleura: There is no pleural effusion or pneumothorax. Heart and mediastinum: The heart and the mediastinum are unremarkable. Bones and soft tissues: No acute bony abnormalities. IMPRESSION: 1. No acute cardiopulmonary abnormalities. Signed by: Dr. Edgard Patel M.D. on 03/31/2017 2:48 PM Dictated By: EDGARD PATEL MD 1448 Transcribed By: KELLEN on 03/31/17 1448 COPY TO: LULU GALEANA CT ABDOMEN/PELVIS W [place] [address] Patient Name: ERIC NAVARRO MR #: [id number] : 1965 Age/Sex: 51/M Req #: [id number] Adm Physician: Ordered by: LULU GALEANA Report #: [id number] Location: ER Room/Bed: Procedure: [id number] CT/CT ABDOMEN/PELVIS W Exam Date: 03/31/17 Exam Time: 1420 REPORT STATUS: Signed EXAMINATION: CT of the abdomen and pelvis with contrast. TECHNIQUE: Helical CT images of the abdomen and pelvis were performed from the lung bases to the lesser trochanters after the intravenous administration of 100 cc of Isovue 300 and the oral administration of none. Coronal and sagittal reformatted images were obtained. COMPARISON: None. CLINICAL HISTORY:Right-sided abdominal pain DISCUSSION: ABDOMEN/PELVIS: LOWER THORAX:Unremarkable. HEPATOBILIARY: No focal hepatic lesions. No intra-or extrahepatic biliary ductal dilation. Cholecystectomy clips. SPLEEN: No splenomegaly. PANCREAS: No focal masses or ductal dilatation. ADRENALS: No adrenal nodules. KIDNEYS/URETERS: No hydronephrosis, stones, or solid mass lesions. PELVIC ORGANS/BLADDER: The bladder is normal. PERITONEUM/RETROPERITONEUM: No free air or fluid. LYMPH NODES: No intra-abdominal, retroperitoneal, pelvic or inguinal lymphadenopathy. VESSELS: The celiac trunk,superior and inferior mesenteric and bilateral renal arteries are patent The portal, superior mesenteric and splenic veins are patent. GI TRACT: No distention or wall thickening. Appendix not visualized. BONES AND SOFT TISSUE: No bony destructive lesions. IMPRESSION: No acute CT finding. Signed by: Dr. Edgard Patel M.D. on 03/31/2017 2:59 PM Dictated By: EDGARD PATEL MD 9924 Transcribed By: KELLEN on 03/31/17 9674 COPY TO: LULU GALEANA
--- OUTSIDE RECORDS SUMMARY | 2019-02-20 12:08 | XMS REPORT | Summary of Care ---
Author Author [facility] Unknown Address Unknown Phone Unavailable Care Team Providers Care Monitor Technician Name Role Phone GUERA Noyola, TUYET Unavailable Unavailable ANNALISE BRASWELL, TREVOR GARCIA Unavailable Unavailable ANNALISE Che, TREVOR Unavailable Unavailable Kash Phoenix MD Unavailable Unavailable Jerson Bowens MD Unavailable Unavailable GUERA CONTRERAS, TUYET Unavailable Unavailable Unavailable Unavailable Functional Status Name Dates Details Functional status health issues are not documented Status: Name Dates Details Cognitive status health issues are not documented Status: Problems Name Dates Details Graves disease (242.00, E05.00) Status: Active Dermatophytosis of nail (110.1, B35.1) Status: Active Abscess (682.9, L02.91) Status: Active Ringworm, body (110.5, B35.4) Status: Active Lipoma (214.9, D17.9) Status: Active AGE (acute gastroenteritis) (558.9, K52.9) Status: Active Right flank pain (789.09, R10.9) Status: Active Biliary colic symptom (574.20, K80.50) Status: Active Tinea corporis (110.5, B35.4) Status: Active Fatty infiltration of liver (571.8, K76.0) Status: Active Chest pain (786.50, R07.9) Status: Active Abdominal pain (789.00, R10.9) Status: Active Coccyalgia (724.79, M53.3) Status: Active Contusion of coccyx (922.32, S30.0XXA) Status: Active Anal fissure (565.0, K60.2) Status: Active External hemorrhoid (455.3, K64.4) Status: Active History of hemorrhoids (V13.89, Z87.19) Status: Active Colon cancer screening (V76.51, Z12.11) Status: Active Contusion of right middle finger without damage to nail, initial encounter (923.3, S60.031A) Status: Active Contusion of hand (923.20, S60.229A) Status: Active GERD (gastroesophageal reflux disease) (530.81, K21.9) Status: Active Acute bronchitis and bronchiolitis (466.0, J20.9) Status: Active Allergic rhinitis, seasonal (477.9, J30.2) Status: Active Insomnia (780.52, G47.00) Status: Active Reactive airway disease with acute exacerbation, unspecified asthma severity, unspecified whether persistent (493.92, J45.901) Status: Active Viral URI with cough (465.9, J06.9) Status: Active Chronic right-sided thoracic back pain (724.1, M54.6) Status: Active Cervicalgia (723.1, M54.2) Status: Active Back pain (724.5, M54.9) Status: Active Medications Name Dates Details Not Currently on Medications Active methylPREDNISolone 4 MG Oral Tablet Therapy Pack Follow instuctions on pack * Quantity: 1 Refills: 0 LYNNE N.P., TUYET * Start : 04-Jul-2018 Active 21 Tablet Pack Cyclobenzaprine HCl - 5 MG Oral Tablet TAKE 1 TABLET 3 TIMES DAILY NEEDED. * Quantity: 30 Refills: 0 LYNNE N.P., TUYET * Start : 04-Jul-2018 Active Allergies and Adverse Reactions Name Dates Details No Known Allergies (Allergy) Status: Active Past Medical History Name Dates Details History of Anxiety (300.00, F41.9) Status: Resolved History of Migraine without status migrainosus, not intractable (346.90, G43.909) Status: Resolved Procedures Procedure Dates Details History of Shoulder Surgery Left Completed History of Shoulder Surgery Right Completed History of Elbow Surgery Completed History of Knee Surgery Right Completed History of Cholecystectomy Completed Immunization Name Dates Details Immunizations not documented Family History Name Dates Details FHx: ischemic heart disease (V17.3, Z82.49) Comments: Family History Status: Active Family history of cardiovascular disorder (V17.49, Z82.49) Comments: Family History Status: Active Name Dates Details Family history of diabetes mellitus (V18.0, Z83.3) Status: Active Name Dates Details Family history of asthma (V17.5, Z82.5) Status: Active FHx: colon cancer (V16.0, Z80.0) Status: Active Name Dates Details Family history of ASCVD (V17.49, Z82.49) Status: Active Social History Name Dates Details - Status: Name Dates Details Never smoker Vital Signs Date Test Result Details No Known Vitals to report Results Date Description Value Details Results not documented Plan of Care Name Dates Details Planned Observations Planned Goals not documented Planned Encounters Appointment; TUYET LYNNE NP On: 30-Sep-2018 13:30 Instructions Name Dates Details Instructions not documented Encounters Appointment; KASH PHOENIX M.D. Encounter Diagnosis: Problem not documented On: 23-Apr-2017 13:15 Appointment; KASH PHOENIX M.D. Encounter Diagnosis: Problem not documented On: 26-Sep-2017 16:00 Appointment; JERSON BOWENS M.D. Encounter Diagnosis: Problem not documented On: 25-Mar-2018 11:30 Appointment; TUYET LYNNE NP Encounter Diagnosis: Problem not documented On: 04-Jul-2018 7:45 Appointment; TUYET LYNNE NP Encounter Diagnosis: Problem not documented On: 30-Sep-2018 13:30
[2019-02-20 17:31] VITALS: BP 132/91
[2019-02-20 20:00] VITALS: BP 141/105
--- NOTE | 2019-02-20 20:08 | NUR ---
patient in bed, with family member on bed side, iv fluid running, denied any pain at this time. will continue to monitor.
[2019-02-20] MEDS: HYDROCODONE/APAP 5MG-325MG TAB PO PRN (22:11)
[2019-02-21] VITALS (9 sets, daily range): BP systolic 126–146; BP diastolic 89–111
--- NOTE | 2019-02-21 07:00 | NUR ---
Rec'd patient sitting up in recliner. at bedside.
[2019-02-21] MEDS: AMLODIPINE BESYLATE 5 MG TAB PO SCH ×2 (08:40→17:08)
[2019-02-21] MEDS: ASPIRIN 81 MG ENTERIC COATED PO SCH (08:40)
--- NOTE | 2019-02-21 08:58 | NUR ---
Chepe Vazquez to bedside; orders rec'd.
[2019-02-21 09:06] LABS: BASOPHILS % 0.5 % (0.0-1.0); EOSINOPHILS # (AUTO) 0.2 (0.0-0.4); EOSINOPHILS % 2.6 % (0.0-6.0); HEMATOCRIT 47.9 % (38.2-49.6); HEMOGLOBIN 16.5 g/dL (14.0-18.0); LYMPHOCYTES # (AUTO) 1.9 (1.0-3.2); LYMPHOCYTES % 28.7 % (18.0-39.1); MEAN CORPUSCULAR HEMOGLOBIN 29.3 pg (28-32); MEAN CORPUSCULAR HGB CONC 34.4 g/dL (31-35); MEAN CORPUSCULAR VOLUME 84.9 fL (81-99); MONOCYTES # (AUTO) 0.5 (0.2-0.8); MONOCYTES % 6.9 % (4.4-11.3); PLATELET COUNT 251 x10e3/uL (140-360); RED BLOOD COUNT 5.64 x10e6/uL (4.3-5.7); RED CELL DISTRIBUTION WIDTH 12.1 % (11.7-14.4)
[2019-02-21 09:23] LABS: ANION GAP 16.2 mmol/L (8-16); BLOOD UREA NITROGEN 8 mg/dL (7-26); BUN/CREATININE RATIO 9 (6-25); CALCIUM 9.6 mg/dL (8.4-10.2); CARBON DIOXIDE 28 mmol/L (22-29); CHLORIDE 97 mmol/L (98-107); CREATININE, SERUM 0.94 mg/dL (0.72-1.25); EST GLOMERULAR FILTRATION RATE > 60 ML/MIN (60-); GLUCOSE 130 mg/dL (74-118); POTASSIUM 4.2 mmol/L (3.5-5.1); SODIUM 137 mmol/L (136-145)
--- NOTE | 2019-02-21 09:54 | Diagnostic Imaging Report ---
EXAMINATION: CHEST SINGLE (PORTABLE) INDICATION: Congestion, shortness of breath. COMPARISON: Chest radiograph 02/16/[address] Chest 02/17/19. FINDINGS: TUBES and LINES: None. LUNGS: Low lung volumes. Patchy bibasilar opacities, likely atelectasis. No new consolidation. Central vascular congestion without evidence of pulmonary edema. PLEURA: Small left pleural effusion. Trace right pleural effusion. HEART AND MEDIASTINUM: The cardiomediastinal silhouette is unremarkable. BONES AND SOFT TISSUES: No acute osseous lesion. Soft tissues are unremarkable. UPPER ABDOMEN: No free air under the diaphragm. There are cholecystectomy clips. IMPRESSION: Small left and trace right pleural effusion with associated patchy bibasilar opacities, likely atelectasis. Signed by: Dr. Chris Connor MD on 02/21/2019 9:51 AM
[2019-02-21] MEDS ORDERED: FUROSEMIDE INJ 10 MG/ML 2 ML VIAL IV ONE (11:00)
--- NOTE | 2019-02-21 13:01 | NUR ---
Nutrition Screen Note RD Recommendation for Physician: Continue diet as ordered Plan of Care: RD following, monitoring for tolerance and adequacy Nutrition reason for involvement: LOS Primary Diagnose(s): rhabdomyolysis PMH: Graves disease, Ht:67 in Wt:177lb BMI: 27.7kg/m2 IBW:148lb +/-10% RD Assessment: (02/21/19) Chart reviewed. Labs and meds reviewed. Initial encounter with patient. Pt denies any chewing or swallowing difficulty nor has any N,V,D. Pt has no known food allergies. Pt denies any wt changes and reports a good appetite. Current Diet: Regular diet Malnutrition Evaluation 02/21/19) The patient does not meet criteria for a specified degree of malnutrition at this time. Will re-evaluate at follow-up as appropriate. Diet Education Needs Assessment: Diet education not indicated. Nutrition Care Level: Low Signed: Ben Fuentes RD, LD, [facility]
[2019-02-21] MEDS: HYDROCODONE/APAP 5MG-325MG TAB PO PRN (16:44)
[2019-02-22 03:47] VITALS: BP 139/97
[2019-02-22] MEDS: ACETAMINOPHEN 325 MG TAB PO PRN ×2 (03:53→16:33)
--- NOTE | 2019-02-22 07:00 | NUR ---
BEDSIDE ROUNDS COMPLETE NO DISTRESS NOTED, UPDATED ON POC VOCIED UNDERSTANDING, DENIES PAIN AT THIS TIME, CALL LIGHT IN REACH WILL CONTINUE TO MONITOR
[2019-02-22 07:41] VITALS: BP 138/98
[2019-02-22 08:14] VITALS: BP 138/98
[2019-02-22] MEDS: AMLODIPINE BESYLATE 5 MG TAB PO SCH ×2 (09:08→16:33)
[2019-02-22] MEDS: ASPIRIN 81 MG ENTERIC COATED PO SCH (09:08)
[2019-02-22 11:42] VITALS: BP 132/90
--- NOTE | 2019-02-22 12:10 | NUR ---
Visit made by the Spiritual Care Department Pastoral Visitor, Melony Rivas. PV provided pastoral presence, prayer, hospitality, and supportive listening. Pastoral Visitor informed pt/family of the scope of [facility] [employer] Worker Services and availability. FELISHA MELGOZA Voice Intercept Technician Spiritual Care Department O: [phone] Pager: [phone] ([phone] number calling from)
[2019-02-22 15:55] VITALS: BP 145/101
[2019-02-22 20:00] VITALS: BP 141/102
[2019-02-22] MEDS ORDERED: HYDROCODONE/APAP 5MG-325MG TAB PO PRN (20:15)
[2019-02-23] VITALS: BP 134/97
[2019-02-23 07:03] VITALS: BP 126/88
[2019-02-23 08:00] VITALS: BP 126/88
[2019-02-23] MEDS: AMLODIPINE BESYLATE 5 MG TAB PO SCH (08:00)
[2019-02-23] MEDS: ASPIRIN 81 MG ENTERIC COATED PO SCH (08:00)
--- NOTE | 2019-02-23 11:00 | NUR ---
DISCUSSED PLAN OF CARE WITH DR MARTINEZ CK'S REMAIN HIGH TODAY 7,907 WILL REPEAT CK AT 9AM AND IF TRENDING DOWN WILL DC HOME NO DC NEEDS
[2019-02-23 11:13] VITALS: BP 128/95
[2019-02-23 15:29] VITALS: BP 142/99
[2019-02-23 15:48] LABS: ALANINE AMINOTRANSFERASE 248 IU/L (0-55); ALBUMIN 3.8 g/dL (3.5-5.0); ALBUMIN/GLOBULIN RATIO 1.3 (0.8-2.0); ALKALINE PHOSPHATASE 59 IU/L (40-150); ANION GAP 14.7 mmol/L (8-16); BLOOD UREA NITROGEN 12 mg/dL (7-26); BUN/CREATININE RATIO 13 (6-25); CARBON DIOXIDE 25 mmol/L (22-29); CHLORIDE 98 mmol/L (98-107); CREATININE, SERUM 0.89 mg/dL (0.72-1.25); EST GLOMERULAR FILTRATION RATE > 60 ML/MIN (60-); GLUCOSE 150 mg/dL (74-118); POTASSIUM 3.7 mmol/L (3.5-5.1); SODIUM 134 mmol/L (136-145)
[2019-02-23] MEDS ORDERED: METOPROLOL SUCC25 MG PO (17:04)
[2019-02-23] MEDS ORDERED: AMLODIPINE BESY10 MG PO (17:04)
--- NOTE | 2019-02-23 22:35 | Discharge Summary ---
DISCHARGE DIAGNOSES: 1. Rhabdomyolysis of unknown etiology. 2. Hypertension, now better controlled. 3. Left ventricular concentric hypertrophy. 4. Aortic root dilatation. HOSPITAL COURSE: Mr. Sanchez is a pleasant 53-year-old gentleman, patient of Dr. Corey Ernandez, who has no significant past medical history except for remote Graves' disease, that was treated with radioactive iodine. At the time of admission, he is euthyroid. He presented to this hospital about 10 days ago with complaint of bilateral calf pain. On admission, his total CK level was 2600 and he was admitted with impression of acute rhabdomyolysis. The patient denies any use of prescription, [id number], or recreational drugs. He admits to some alcohol drinking. 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 Symptoms developed 2 to 3 days later. He denies any other concomitant signs or symptoms. He denies any crushing injury, any recent immobility. No surgery. He was admitted with impression of rhabdomyolysis. He was started on force fluids and a consultation was requested with Nephrology. Additional workup has directed a finding etiology of rhabdomyolysis was negative. Inflammatory conditions have so far been ruled out. The patient has a normal sedimentation rate, a normal CRP, and a negative RICHARD panel. His HIV test is negative. He has influenza A and B tests were negative. There is an RPR test study still pending. The course in the hospital was characterized by an ascending type of involvement, initially were the muscles in the calves and then the muscles in the chest area, more lately the muscles in the shoulder. Each period of achiness was actually accompanied by a rise in his total CK levels up to 12,000. After several days, the CK has slowly come down, today down to 8500. The patient denies any significant muscle discomfort. Additional test included a 2D echocardiogram, which is significant for left ventricular concentric hypertrophy as well as aortic root dilatation without dissection. The aortic root was measuring between 4 to 4.6 cm. The patient has requested discharge and I have had a long talk with the patient and the in reference to the need for close followup and to monitor the urine output. He is going to our office on Saturday morning for repeat CK levels and he is given prescriptions for amlodipine 10 mg daily and metoprolol 25 mg every day. If symptoms return or he is not feeling well, he has been instructed to return to the emergency department. I spent about 60 minutes [id number] with the patient. MD LAWSON Hayes/MODAyden /[id number]
== END 2019-02-23 17:40 | disposition home or self-care (01) | DRG 558 ==
LOC: ER 15:03 → ERHOLD 19:08 → MED/SURG2 02-15 01:18 → OBSVTOIN 02-16 09:57 → IMCU 02-17 01:40 → ICU 02-17 01:50 → IMCU 02-18 20:37
PROVIDERS: ADMIT Internal Medicine; ATTEND Internal Medicine
DX: M62.82 Rhabdomyolysis (principal); E87.3 Alkalosis; Z90.49 Acquired absence of other specified parts of digestive tract; E05.00 Thyrotoxicosis with diffuse goiter without thyrotoxic crisis or storm; M47.9 Spondylosis, unspecified; E87.70 Fluid overload, unspecified; T69.8XXA Other specified effects of reduced temperature, initial encounter; R07.9 Chest pain, unspecified; R79.89 Other specified abnormal findings of blood chemistry; R74.0 Nonspecific elevation of levels of transaminase and lactic acid dehydrogenase [LDH]; E87.6 Hypokalemia; M25.512 Pain in left shoulder; M25.511 Pain in right shoulder; I10 Essential (primary) hypertension; I77.819 Aortic ectasia, unspecified site; I51.7 Cardiomegaly
CPT/HCPCS: 36415; 71045; 71250; 76700; 80048; 80053; 80307; 81001; 82550; 82552; 82553; 82948; 83735; 83880; 84100; 84443; 84481; 84484; 85025; 85379; 86039; 86140; 86431; 86592; 86706; 86803; 87390; 87400; 93041; 93306; 93970; 99284; G0378; G0433; G0435; J1940; J2270; J7030; J7070

== ENCOUNTER 2020-09-11 13:23 | Inpatient (IN) | payer OTHER ==
[~2020-09-11] VITALS: Ht 170.2 cm; Wt 74.8 kg
[~2020-09-11 13:23] MED LIST changes: +AMLODIPINE BESY10 MG PO; +METOPROLOL SUCC25 MG PO
[2020-09-11] MEDS ORDERED: ALPRAZOLAM0.5 MG PO (13:39)
[2020-09-11] MEDS ORDERED: SODIUM CHLORIDE 0.9% 1000ML 1,000 ML IV STA (13:40)
[2020-09-11] MEDS: DILTIAZEM HCL 5 MG/ML 5 ML VIAL IV NR ×2 (13:53→13:58)
[2020-09-11] MEDS: ENOXAPARIN SODIUM INJ 100 MG/ML SYR SC SCH (13:53)
[2020-09-11] MEDS ORDERED: ENOXAPARIN INJ 80 MG/0.8 ML SYR SC ONE (14:04)
[2020-09-11] MEDS ORDERED: DILTIAZEM HCL VIAL 5 ML ONE (14:05)
[2020-09-11] MEDS ORDERED: DILTIAZEM HCL 60 MG TAB PO SCH (14:15)
[2020-09-11] MEDS ORDERED: METOPROLOL TARTRATE INJ 1 MG/ML VIAL IV NR (14:15)
[2020-09-11 14:17] LABS: BASOPHILS % 0.5 % (0.0-1.0); EOSINOPHILS # (AUTO) 0.1 (0.0-0.4); EOSINOPHILS % 0.7 % (0.0-6.0); HEMATOCRIT 43.7 % (38.2-49.6); HEMOGLOBIN 15.5 g/dL (14.0-18.0); LYMPHOCYTES # (AUTO) 2.6 (1.0-3.2); LYMPHOCYTES % 31.5 % (18.0-39.1); MEAN CORPUSCULAR HEMOGLOBIN 29.3 pg (28-32); MEAN CORPUSCULAR HGB CONC 35.5 g/dL (31-35); MEAN CORPUSCULAR VOLUME 82.6 fL (81-99); MONOCYTES # (AUTO) 0.6 (0.2-0.8); MONOCYTES % 7.3 % (4.4-11.3); NEUTROPHILS # (AUTO) 4.9 (2.1-6.9); NEUTROPHILS % 59.8 % (38.7-80.0); PLATELET COUNT 272 x10e3/uL (140-360); RED BLOOD COUNT 5.29 x10e6/uL (4.3-5.7); RED CELL DISTRIBUTION WIDTH 11.9 % (11.7-14.4)
[2020-09-11 14:22] LABS: INR 0.87; PARTIAL THROMBOPLASTIN TIME 29.1 seconds (23.8-35.5); PROTHROMBIN TIME 12.4 seconds (11.9-14.5)
[2020-09-11 14:29] LABS: ALBUMIN 4.5 g/dL (3.5-5.0); ALBUMIN/GLOBULIN RATIO 1.6 (0.8-2.0); ANION GAP 19.1 mmol/L (8-16); CALCIUM 8.8 mg/dL (8.4-10.2); CREATININE, SERUM 0.88 mg/dL (0.72-1.25); POTASSIUM 4.1 mmol/L (3.5-5.1)
[2020-09-11 14:37] LABS: CREATINE KINASE MB 9.9 ng/mL (0-5.0)
[2020-09-11 14:51] LABS: FREE THYROXINE INDEX 2.2665 (1.4-3.8); THYROID STIMULATING HORMONE 0.289 uIU/mL (0.350-4.940)
[2020-09-11] MEDS ORDERED: IOPAMIDOL 370 MG/ML 200 ML INFUS..BTL INJ ONE (14:54)
[2020-09-11] MEDS ORDERED: SODIUM CHLORIDE 0.9% 50ML 50 ML ONE (14:54)
[2020-09-11] MEDS ORDERED: SODIUM CHLORIDE 0.9% 1000ML 1,000 ML IV SCH (15:00)
[2020-09-11 15:05] LABS: AMPHETAMINES SCREEN,URINE NEGATIVE (NEGATIVE); BENZODIAZEPINES SCREEN,URINE NEGATIVE (NEGATIVE); PHENCYCLIDINE SCREEN,URINE NEGATIVE (NEGATIVE)
[2020-09-11 15:07] LABS: CLARITY,URINE CLEAR (CLEAR); COLOR,URINE YELLOW (YELLOW); KETONES,URINE NEGATIVE (NEGATIVE); LEUKOCYTE ESTERASE ,URINE NEGATIVE (NEGATIVE); NITRITE,URINE NEGATIVE (NEGATIVE); PROTEIN,URINE DIPSTICK NEGATIVE (NEGATIVE); URINE UROBILINOGEN 0.2 mg/dL (0.2 - 1)
[2020-09-11 15:19] LABS: RBC,URINE 0-5 /HPF (0-5); WBC,URINE (MAN) 0-5 /HPF (0-5)
[2020-09-11] MEDS ORDERED: MORPHINE SULFATE INJ 2 MG/ML SYR IV PRN (15:30)
[2020-09-11] MEDS ORDERED: ONDANSETRON HCL INJ 2MG/ML 2ML 2 MG/ML VIAL IV PRN (15:30)
[2020-09-11] MEDS: DILTIAZEM HCL 30 MG TAB PO SCH ×2 (16:30→23:34)
[2020-09-11 19:10] VITALS: BP 111/79
[2020-09-11 20:00] VITALS: BP 118/83
[2020-09-11 20:23] VITALS: BP 111/79
[2020-09-11] MEDS ORDERED: TERBINAFINE HC250 MG PO (20:47)
[2020-09-12] VITALS: BP 106/78
[2020-09-12 00:46] LABS: CREATINE KINASE MB 5.7 ng/mL (0-5.0)
[2020-09-12 04:00] VITALS: BP 102/70
[2020-09-12 05:48] LABS: BASOPHILS % 0.5 % (0.0-1.0); EOSINOPHILS # (AUTO) 0.1 (0.0-0.4); EOSINOPHILS % 1.8 % (0.0-6.0); HEMATOCRIT 37.9 % (38.2-49.6); HEMOGLOBIN 12.9 g/dL (14.0-18.0); LYMPHOCYTES # (AUTO) 1.5 (1.0-3.2); LYMPHOCYTES % 33.5 % (18.0-39.1); MEAN CORPUSCULAR HEMOGLOBIN 29.2 pg (28-32); MEAN CORPUSCULAR VOLUME 85.7 fL (81-99); MONOCYTES # (AUTO) 0.4 (0.2-0.8); NEUTROPHILS # (AUTO) 2.4 (2.1-6.9); PLATELET COUNT 179 x10e3/uL (140-360); RED BLOOD COUNT 4.42 x10e6/uL (4.3-5.7); RED CELL DISTRIBUTION WIDTH 12.4 % (11.7-14.4)
[2020-09-12] MEDS: DILTIAZEM HCL 30 MG TAB PO SCH (07:30)
[2020-09-12 07:32] LABS: ALBUMIN 3.4 g/dL (3.5-5.0); ALBUMIN/GLOBULIN RATIO 1.4 (0.8-2.0); ANION GAP 10.3 mmol/L (8-16); CALCIUM 8.1 mg/dL (8.4-10.2); CHOL/HDL RATIO 5.2 (3.9-4.7); CREATININE, SERUM 0.94 mg/dL (0.72-1.25); POTASSIUM 4.3 mmol/L (3.5-5.1)
[2020-09-12 07:33] VITALS: BP 113/79
[2020-09-12 07:37] VITALS: BP 113/79
[2020-09-12] MEDS ORDERED: ASPIRIN 81 MG ENTERIC COATED PO SCH (09:00)
[2020-09-12 11:39] VITALS: BP 126/79
[2020-09-12] MEDS ORDERED: ASPIRIN EC81 MG PO (12:12)
== END 2020-09-12 12:20 | disposition home or self-care (01) | DRG 309 ==
LOC: ER 13:30 → ERHOLD 15:06 → MED/SURG 18:28
PROVIDERS: ADMIT Internal Medicine; ATTEND Internal Medicine
DX: I48.0 Paroxysmal atrial fibrillation (principal); M62.82 Rhabdomyolysis; F41.9 Anxiety disorder, unspecified; E05.00 Thyrotoxicosis with diffuse goiter without thyrotoxic crisis or storm; Z20.822 Contact with and (suspected) exposure to COVID-19
CPT/HCPCS: 36415; 71045; 71260; 80053; 80061; 80307; 81001; 82550; 82553; 83735; 83880; 84436; 84443; 84479; 84484; 85025; 85379; 85610; 85730; 93005; 93306; 99284; J1650; J7030; Q9967; U0002